=== PATIENT | male | born 1955 | race Caucasian/White ===

== ENCOUNTER → 2023-05-21 | Outpatient (CLI) | payer MEDICARE ==
[2023-05-21 14:53] VITALS: BP 138/80; PULSE 61; RESP 16; TEMP 98.1
--- NOTE | 2023-05-21 15:19 | P.SLEEP ---
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 The has noted that he is snoring loud" breathing any pauses in his breathing at night for several seconds on multiple occasions. The patient reports that he wakes up occasionally choking or gasping for air and he has also symptoms of excessive nighttime urination and nocturia. He goes to bed around 11 PM and he gets out of bed at around 7 AM in the morning. He takes occasional naps during the day. He drinks 2 cups of coffee in the morning. No alcoholism. No substance abuse. He gets tired upon driving long distances. Nevertheless, he does not fall asleep and he has not been involved in a motor vehicle accident because of feeling drowsy or sleepy. His current [place] score is at 13. He is a mouth breather and has dry mouth in the morning. His weight has remained stable over the years and he is maintaining a body weight of 240 pounds. No grinding of the teeth. No insomnia. No sleepwalking. No anxiety or panic. No restlessness in his lower extremities. No heartburn. No palpitation. No other cardiovascular complications. Has had issues with chronic back pain receiving epidural shots and he also had history of hypertension. No stroke. No congestion heart failure. No cardiac arrhythmia. Review of Systems Constitutional: Reports daytime sleepiness, Reports fatigue Eyes: denies as per HPI, denies blurred vision, denies bulging eye, denies decreased vision, denies diplopia, denies discharge, denies dry eye, denies irritation, denies itching, denies pain, denies photophobia, denies loss of peripheral vision, denies loss of vision, denies tunnel vision/blind spots Ears: deny: decreased hearing, ear discharge, earache, tinnitus Ears, nose, mouth and throat: Reports as per HPI Breasts: absent: as per HPI, gynecomastia Cardiovascular: Reports as per HPI Respiratory: Reports as per HPI Gastrointestinal: Reports as per HPI Genitourinary: Reports as per HPI Musculoskeletal: Reports as per HPI Musculoskeletal: absent: ankle pain, ankle stiffness, ankle swelling, as per HPI, elbow pain, elbow stiffness, elbow swelling, foot pain, foot stiffness, foot swelling, hand pain, hand stiffness, hand swelling, hip pain, hip stiffness, hip swelling, knee pain, knee stiffness, knee swelling, shoulder pain, shoulder stiffness, shoulder swelling, wrist pain, wrist stiffness, wrist swelling Integumentary: Reports as per HPI Neurological: Reports as per HPI Psychiatric: Reports as per HPI Past Medical History Past Medical History: Hypertension History of Any Multi-Drug Resistant Organisms: None Reported Past Surgical History: Orthopedic Surgery Additional Past Surgical History / Comment(s): rt knee replaced, rt meniscus cleanout Past Anesthesia/Blood Transfusion Reactions: No Reported Reaction Past Psychological History: No Psychological Hx Reported Smoking Status: Former smoker Past Alcohol Use History: None Reported Past Drug Use History: None Reported Medications and Allergies Home Medications Medication Instructions Recorded Confirmed Type Acetaminophen Tab [Tylenol Tab] 500 mg PO Q4H 05/21/23 05/21/23 History Ibuprofen [Motrin Ib] 200 mg PO Q8H 05/21/23 05/21/23 History amLODIPine [Norvasc] 10 mg PO DAILY 05/21/23 05/21/23 History Allergies Allergy/AdvReac Type Severity Reaction Status Date / Time Penicillins AdvReac Swelling Unverified 05/21/23 14:40 Physical Exam Vitals: Vital Signs Temp Pulse Resp BP Pulse Ox 05/21/23 14:41 98.1 F 61 16 138/80 95 Intake and Output 05/21/23 05/21/23 05/21/23 06:59 14:59 22:59 Other: Weight 252 kg The patient has an [place] score of 13. Body mass index is 32.1. Weight is 252. Neck size is 18.25 inches. The patient appeared well nourished and normally developed. Vital signs as documented. Head exam is unremarkable. No scleral icterus or corneal arcus noted. Neck is without jugular venous distension, thyromegaly, or carotid bruits. The patient has redundant uvula and crowding of posterior pharynx. He has a Mallampati class II. Carotid upstrokes are brisk bilaterally. Lungs are clear to auscultation and percussion. Cardiac exam reveals the PMI to be normally sized and situated. Rhythm is regular. First and second heart sounds normal. No murmurs, rubs or gallops. Abdominal exam reveals normal bowel sounds, no masses, no organomegaly and no aortic enlargement. Extremities are nonedematous and both femoral and pedal pulses are normal. Examination of the skin revealed no evidence of significant rashes, suspicious appearing nevi or other concerning lesions. Neurologically, the patient is awake and alert and the patient does not have any focal neurological deficit. Cranial nerves are essentially intact. Assessment and Plan Plan: Chronic hypersomnia sleepiness with an [place] score of 13 associated with some fatigue. High likelihood for obstructive sleep apnea Loud snoring Witnessed apneas Body mass index of 32.1 Hypertension Chronic back pain Plan Encourage weight loss. Sleep on the side. Implement the sleep hygiene measures. Proceed with a home sleep study to evaluate this patient for obstructive sleep apnea. Will proceed with treatment if the patient demonstrates significant sleep breathing disorder. Sleep Note - Sleep Data ESS Total: 13 - Sleep Note Sleep Note: Temperature: 98.1 F Pulse Rate: 61 Respiratory Rate: 16 Blood Pressure: 138/80 SpO2: 95 Height: 6 ft 2.25 in Weight: 252 kg BMI: Neck Circumference: 18.2
== END ==
LOC: 3 N SLEEP 13:56
PROVIDERS: ATTEND Internal Medicine Critical Care Medicine
DX: G47.10 Hypersomnia, unspecified (principal); R06.83 Snoring; I10 Essential (primary) hypertension; G89.29 Other chronic pain; Z88.0 Allergy status to penicillin; Z87.891 Personal history of nicotine dependence; Z79.899 Other long term (current) drug therapy
CPT/HCPCS: 99211

== ENCOUNTER → 2023-05-28 | Outpatient (CLI) | payer MEDICARE ==
--- NOTE | 2023-06-17 12:49 | P.PCN ---
Date of Procedure: 05/28/23 Operative Findings: Home sleep study testing Date of services 05/28/2023 History This is a 67-year-old male patient with chronic hypersomnia and a [place] score of 13. He has loud snoring, witnessed apneas and he carries a body mass index of 32. He has hypertension admission. He is coming in to be evaluated for obstructive sleep apnea. Home sleep study was ordered. Pertinent physical findings The patient has a weight of 252 pounds with a body mass index of 32.1. technical description The [employer] apnea link system was used to complete this home sleep study. This is a type III home sleep study. The total recording duration was 8 hours. The study started at 10:52 PM and it ended at 6:53 AM. There was a total of 7 hours and 49 minutes of flow monitoring and 7 hours and 45 minutes of oxygen saturation monitoring. As such, this was a successful study Results The respiratory evaluation showed a total of 252 obstructive apneas and a total of 1 85 obstructive hypopneas. The resulting AHI was 56.6. The patient also had a central component with a central apnea index of 20.2. Oxygenation analysis This patient had a total of 366 oxygen desaturations with a pulse ox of the more than 4%. The minimum pulse ox was 72%. The baseline pulse ox while awake was 94%. Average pulse ox during sleep was 93% and the patient's lowest pulse ox was 72%. The patient spent approximately 29 minutes of sleep time below pulse ox of 89% Cardiac summary The average heart rate was 65 with a minimum heart rate of 53 and a maximal heart rate of 92 Assessment Severe symptomatic sleep apnea, predominantly obstructive with an AHI of 56. The central apnea index was 20 and the patient has a combination of obstructive and central sleep apnea. Nocturnal oxygen desaturation secondary to above Obesity with a BMI of 32 Chronic hypersomnia with an [place] score of 13 Hypertension Loud snoring Chronic back pain Plan The patient would benefit from CPAP therapy. The patient will be undergoing a in lab CPAP titration. The goal is to illuminate obstructive apneas and monitor the central apneas and will make further recommendations based on the patient's response to CPAP therapy. Encourage weight loss. Optimize sleep hygiene measures. Will continue to follow.
== END ==
LOC: 3 N SLEEP 16:54
PROVIDERS: ATTEND Internal Medicine Critical Care Medicine
DX: G47.33 Obstructive sleep apnea (adult) (pediatric) (principal); G47.10 Hypersomnia, unspecified; E66.9 Obesity, unspecified; I10 Essential (primary) hypertension; R06.83 Snoring; M54.50 Low back pain, unspecified; G47.31 Primary central sleep apnea; Z88.0 Allergy status to penicillin; Z68.32 Body mass index [BMI] 32.0-32.9, adult

== ENCOUNTER 2023-07-09 19:47 | Outpatient (CLI) | payer MEDICARE ==
--- NOTE | 2023-07-25 06:12 | P.PCN ---
Date of Procedure: 07/09/23 Operative Findings: CPAP titration report Date of services 07/09/2023 Pertinent history this is a 68-year-old male patient has been diagnosed having severe symptomatic obstructive sleep apnea with a baseline AHI of 56. The patient also had a component of central apnea with a central apnea index of 20 and the patient had a combination of obstructive and central obstructive sleep apnea with nocturnal oxygen saturations. Sixes score was at 13. Patient is coming in for a CPAP titration Pertinent physical findings The patient had a height of 6 feet and 2 inches, weight of 252 pounds with a body mass index of 32.4 Technical description The patient was studied using a standard complex polysomnography protocol that included recording of the 2 EKG, Central, occipital and frontal EEG, right and left outer canthus EOG, submental EMG, right and left anterior tibialis EMG, respiratory airflow by thermocouple and or pressure/flow transducer, respiratory efforts by abdominal and thoracic PVDF belts, oxygen saturation by cable oximetry. Position by observation synchronized the PSG. Stepwise CPAP titration was done to eliminate obstructive respiratory events. Equipment used: [employer]. Sleep architecture The total recording duration was 410 minutes. Total sleep time was 260.5 minute s and the sleep efficiency was 63.5%. The wake after sleep onset time was 87.5 minutes. Latency to sleep was 48 minutes. Latest REM sleep was 173 minutes. The sleep architecture was characterized by 17.7% stage I, 74.1% stage II, 0.2% stage III, and 8.1% REM sleep. The total arousal index was 12.7. Respiratory analysis the patient was started on CPAP therapy and this was started initially at a pressure of 5 cm of water and the pressure was gradually increased by increments of 1 cm to reach a maximum CPAP pressure of 8 cm of water. This was a very successful titration. The patient was started in various body positions and various sleep stages including REM sleep. There was successful elimination of the obstructive respiratory events while on CPAP therapy examination of the oxygen desaturations. Sleep continuity summary The patient had a total of 55 arousals with an index of 12.7. Respiratory arousal index was 0 Periodic limb movements A total of 156 periodic limb movement activity with an index of 35.9. No significant arousals related to periodic limb movements. Cardiac summary Average heart rate was 58 minimum heart rate of 53 and a maximum heart rate of 66 Assessment Sleep apnea combination of obstructive and central. The patient had an AHI of 56 with a central apnea index of 20. The patient had a successful CPAP titration with complete illumination of the respiratory events. Nocturnal oxygen saturation, recovered with CPAP therapy Chronic hypersomnia with an Sixes score of 13 Obesity with a BMI of 32 Hypertension Chronic back pain Plan Initiate CPAP therapy at a pressure of 8 cm of water with a C-Flex of 3. The patient is going to be provided an AirFit P10 large size nasal pillows. Initiate CPAP therapy and see me back in the office in 30 to 90 days to assess clinical response and plan 6. This is a successful titration.
== END 2023-07-10 05:45 | disposition home or self-care (01) ==
LOC: 3 N SLEEP 19:47
PROVIDERS: ATTEND Internal Medicine Critical Care Medicine
DX: G47.33 Obstructive sleep apnea (adult) (pediatric) (principal); G47.37 Central sleep apnea in conditions classified elsewhere; G47.36 Sleep related hypoventilation in conditions classified elsewhere; G47.10 Hypersomnia, unspecified; E66.9 Obesity, unspecified; I10 Essential (primary) hypertension; G89.29 Other chronic pain; Z68.32 Body mass index [BMI] 32.0-32.9, adult; Z88.0 Allergy status to penicillin; Z79.899 Other long term (current) drug therapy
CPT/HCPCS: 95811